=== PATIENT | female | born 1970 | race Caucasian/White ===

== ENCOUNTER 2018-07-03 09:16 | Outpatient (RCR) | payer BC | END 2018-07-06 09:15 | disposition home or self-care (01) | LOC: ONC 09:16 | PROVIDERS: ATTEND Radiology Radiation Oncology | DX: Z51.0 Encounter for antineoplastic radiation therapy (principal); C50.412 Malignant neoplasm of upper-outer quadrant of left female breast; Z17.0 Estrogen receptor positive status [ER+] | CPT/HCPCS: 77290; 77295; 77300; 77334; 77336; 77417; 77470; 99204 ==

== ENCOUNTER 2018-07-23 09:12 | Outpatient (RCR) | payer BC | END 2018-10-04 | disposition home or self-care (01) | LOC: ONC 09:12 | PROVIDERS: ATTEND Radiology Radiation Oncology | DX: Z51.0 Encounter for antineoplastic radiation therapy (principal); C50.412 Malignant neoplasm of upper-outer quadrant of left female breast; Z17.0 Estrogen receptor positive status [ER+] | CPT/HCPCS: 77290; 77300; 77332; 77334; 77336; 77417 ==